=== PATIENT | male | born 1995 | race Two or more races ===

== ENCOUNTER → 2024-12-12 | Outpatient (CLI) | payer SELFPAY ==
[2024-12-12 10:44] LABS: Motl CLS 1 85
[2024-12-12 10:55] LABS: % Variance Motility 6 %; Motl CLS 2 80; Room Temperature 24 (20-27C (Area)); Sperm Motility 82 % (>=50)
[2024-12-12 11:21] LABS: % Variance 0 %; Count Side 1 18; Count Side 2 18; Sperm Count 18 Million (20-50)
== END | disposition home or self-care (01) ==
LOC: COPL 10:04 → SLDO 10:05
PROVIDERS: PCP Nurse Practitioner Family; Referring Provider Nurse Practitioner Family; Visit Provider Nurse Practitioner Family
DX: E29.1 Testicular hypofunction (principal)
CPT/HCPCS: 89310